=== PATIENT | female | born 1935 | race Caucasian/White ===

== ENCOUNTER 2019-10-19 11:04 | Outpatient (CLI) | payer OTHER, SELFPAY | END 2019-10-19 11:05 | disposition home or self-care (01) | LOC: LAB 11:09 | PROVIDERS: Family Provider Family Medicine; PCP Family Medicine; Visit Provider Family Medicine | DX: Z79.01 Long term (current) use of anticoagulants (principal) ==

== ENCOUNTER 2019-10-19 11:22 | Outpatient (RCR) | payer MEDICARE, OTHER, SELFPAY ==
[2019-10-19 11:46] LABS: INR 2.07 (0.8-1.2)
== END 2019-11-03 23:59 | disposition home or self-care (01) ==
LOC: LAB 11:22
PROVIDERS: Family Provider Family Medicine; PCP Family Medicine; Visit Provider Dermatology
DX: Z01.89 Encounter for other specified special examinations (principal); Z79.01 Long term (current) use of anticoagulants
CPT/HCPCS: 85610

== ENCOUNTER 2021-05-22 14:41 | Outpatient (CLI) | payer MEDICARE, OTHER, SELFPAY ==
--- NOTE | 2021-05-22 14:51 | USCV_ITS ---
Beatriz Ray Age: 86 Gender: F : 1935 Exam Date: 05/22/2021 15:09 Ordering Phys: Lavelle Lynch MD Technologist: Patty Vidal [place] [facility] [place]: LOCALIZED EDEMA BP: 139 / 74 HR: 59 Rhythm: Sinus Technical Quality: Adequate MEASUREMENTS (Male / Female) Normal Values 2D ECHO LV Diastolic Diameter PLAX 3.6 cm 4.2 - 5.9 / 3.9 - 5.3 cm LV Systolic Diameter PLAX 2.4 cm IVS Diastolic Thickness 1.1 cm 0.6 - 1.0 / 0.6 - 0.9 cm IVS Systolic Thickness 1.6 cm LVPW Diastolic Thickness 1.0 cm 0.6 - 1.0 / 0.6 - 0.9 cm LVPW Systolic Thickness 1.6 cm RV Chamber Size 2.3 cm LVOT Diameter 2.0 cm LV Ejection Fraction 2D Teich 64.2 % LV Ejection Fraction MOD 2C 58.0 % LV Ejection Fraction 2C AL 58.4 % LA Diameter 3.5 cm LA Width 3.1 cm LA Height 5.5 cm RA Width 3.4 cm RA Height 4.5 cm Aorta at Sinotubular Diameter 1.7 cm M-MODE Aortic Annulus Diameter 2.5 cm LA Ao Ratio MM 1.5 DOPPLER LVOT Peak Velocity 37.0 cm/s TR Peak Velocity 301.9 cm/s TR Peak Gradient 36.5 mmHg TR Mean Velocity 228.8 cm/s TR Mean Gradient 22.8 mmHg TR Velocity Time Integral 103.9 cm TV Peak E Velocity 83.0 cm/s Right Atrial Pressure 8.0 mmHg Pulmonary Artery Systolic Pressu 44.5 mmHg PV Peak Velocity 61.0 cm/s RV Acceleration Time 0.1 s RV Ejection Time 0.3 s RV AcT/ET 0.3 FINDINGS Left Ventricle Normal left ventricular size and systolic function, EF 62 %. No regional wall motion abnormalities. Right Ventricle The right ventricle is normal in size and function. Right Atrium Mildly increased right atrial size. Left Atrium Mildly increased left atrial size. Mitral Valve Thickened mitral valve. Mild mitral annular calcification. Mild mitral valve regurgitation. Aortic Valve Thickened aortic valve. Trace aortic valve regurgitation. Tricuspid Valve [id number] tricuspid valve regurgitation. Pulmonic Valve No gross abnormalities noted Pericardium Normal pericardium without effusion. Aorta Normal ascending aorta dimension. CONCLUSIONS Normal left ventricular size and systolic function, EF 62 %. No regional wall motion abnormalities. Mild biatrial enlargement. Thickened mitral valve. Mild mitral annular calcification. Mild mitral valve regurgitation. Thickened aortic valve. Trace aortic valve regurgitation. Ytquyhsv-[id number]-bibbud tricuspid valve regurgitation. Mild pulmonary hypertension with an estimated pulmonary artery peak systolic pressure of 45 mmHg. There is no pericardial effusion. There are no intracardiac masses. No previous study is available for comparison. [id number] Dr Lance Alatorre MD FACC (Electronically Signed) Final Date: 22 May 2021 19:20 S
--- NOTE | 2021-05-22 15:50 | XR_ITS ---
WS: [id number] SCREENING DEXA SCAN [employer] CLINICAL INFORMATION: POSTMENOPAUSAL, OSTEOPOROSIS COMPARISON: 5 FINDINGS: The L1-L4 bone mineral density measures 0.966 g/cm2. This corresponds to a T score score of -1.8 and Z score of 0.3. Left femoral neck bone mineral density measures 0.607 g/cm2. This corresponds to a T score of -3.2 an d Z score of -0.7. Right femoral neck bone mineral density measures 0.599 g/cm2. This corresponds to a T score -3.2of an d Z score of -0.8. Mean femoral neck bone mineral density measures 0.603 g/cm2. This corresponds to a T score of -3.2 an d Z score of -0.8. XR/XR DEXA axial skeleton* [id number] IMPRESSION: Osteopenia in the lumbar spine. 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 Patient's FRAX calculated 10 year probability for major osteoporotic fracture i s 38.4 % and osteoporotic hip fracture is 16.8%.
== END 2021-05-22 14:42 | disposition home or self-care (01) ==
LOC: RAD 14:49
PROVIDERS: PCP Family Medicine; Visit Provider Family Medicine
DX: Z78.0 Asymptomatic menopausal state (principal); R60.0 Localized edema; M85.88 Other specified disorders of bone density and structure, other site; M81.0 Age-related osteoporosis without current pathological fracture; I08.0 Rheumatic disorders of both mitral and aortic valves; I27.20 Pulmonary hypertension, unspecified
CPT/HCPCS: 77080; 93306